=== PATIENT | female | born 1935 | race Caucasian/White ===

== ENCOUNTER 2021-01-16 17:59 | Inpatient (IN) | payer OTHER ==
[~2021-01-16] VITALS: Ht 157.5 cm; Wt 82.7 kg
--- NOTE | ~2021-01-16 | EMS ---
[address] [address] EMS Patient Care Report Name: SUSAN OZUNA Room #: REG KELSIE Reid#: [id number] Admission: 01/16/21 Attend Phys: Discharge: Date of : 36 Report #: [id number] THIS REPORT FOR: //name// Report Transmitted: 01/16/2021 17:56 EMS Care Summary [facility] MED-ACT Incident [id number] @ 01/16/2021 17:27 Incident Location [address] [place] [address] Patient SUSAN LAROSE Female, 85 Years 1935 Patient Address [address] [place] [address] Patient History Diabetes,Hypertension (HTN),TIA, Patient Allergies Latex allergy,Phenergan,Iodine,Toradol,Cipro,Compazine, Patient Medications Ambien, Hydrocodone, Gabapentin, Levemir, Levothyroxine, Ondansetron, Atorvastatin, Sertraline, Eliquis, Losartan, Melatonin, Omeprazole, Novolin, Cholecalciferol, Chief Complaint Left leg pain Disposition Transported No Lights/[place] Dispatch Reason Traumatic Injury Transported To [facility] Narrative M1142 was dispatched to a code 3 fall. M1142 responded with no delay. [facility] [address] [place] [address] EMS Patient Care Report Name: SUSAN OZUNA Room #: REG KELSIE Reid#: [id number] Admission: 01/16/21 Attend Phys: Discharge: Date of : 36 Report #: [id number] On arrival M1142 found an 83 yo female sitting in an office chair inside the front door. Pt was alert and oriented. Pt did not appear to be in any distress. Pt stated that she fell on 01/11 and initially was not injured. The next day pt woke up with her left leg hurting and the pain has increased since then. Pt wanted to be transported to the hospital for evaluation. Pt stood with assistance and sat on the cot. After pt was on the cot seatbelts were placed on pt. Pt was then moved to the back of the ambulance where she was placed on the monitor. Pt was monitored en route to the hospital. At the hospital pt was moved the the ER bed and report given to the RN. M1142 cleared the hospital and returned to service. Initial Vitals @17:47P: 81,R: 14,BP: 164/83,SpO2: 94, @17:41P: 81,R: 14,BP: 141/78,Pain: 9/10,GCS: 15,Temp: 98F,SpO2: 96,Revised Trauma: 12, Assessments @17:50MENTAL:Person Oriented,Time Oriented,Place Oriented,Event Oriented,SKIN:HEENT:Head/Face: No Abnormalities,Eyes: No Abnormalities,Neck/Airway: No Abnormalities,LUNG SOUNDS:ABDOMEN:PELVIS//GI:EXTREMITIES:Left Leg: Other,Capillary Refill: Left Lower: 3 Sec,Left Arm: No Abnormalities,Right Arm: No Abnormalities,Right Leg: No Abnormalities,PULSE:Pedal: 2+ Normal,NEURO: Impression Injury of Lower Leg Procedures @PTASurgical Mask on PatientResponse: Unchanged@17:40ALS AssessmentResponse: UnchangedSucceeded Timeline MILL TURNER,Surgical Mask on Patient,Response: Unchanged 17:26,Call Received 17:26,Psap Call 17:27,Dispatched 17:28,En Route 17:32,On Scene 17:34,At Patient 17:39,Depart Scene 17:40,ALS Assessment,Response: UnchangedSucceeded, 17:41,BP: 141/78 M,PULSE: 81,RR: 14 R,SPO2: 96 Ox,ETCO2: ,BG: ,PAIN: 9,GCS: 15, 17:47,BP: 164/83 M,PULSE: 81,RR: 14 R,SPO2: 94 Ox,ETCO2: ,BG: ,PAIN: ,GCS: , 17:54,At Destination 18:06,Call Closed [facility] [address] [place] [address] EMS Patient Care Report Name: SUSAN OZUNA Room #: REG [facility]..#: [id number] Admission: 01/16/21 Attend Phys: Discharge: Date of : 36 Report #: [id number] Disclaimer v1.1 Copyright 2020 [employer] This EMS Care Summary contains data elements from the applicable legal record (which may be displayed differently). It is designed to provide pertinent information for the following purposes: continuity of care, clinical quality, and state data reporting. The complete legal record is available to ED staff and administrators of the receiving hospital in [facility]'s Patient Tracker. All data is provided "as is."
[2021-01-16 18:00] VITALS: BP 142/67
[2021-01-16 21:46] LABS: ABSOLUTE NEUTROPHILS 4.2 thou/uL (1.4-8.2); BASOPHILS 0.4 % (0.0-2.0); EOSINOPHILS 1.1 % (0.0-3.0); HEMATOCRIT 36.9 % (37.0-47.0); HEMOGLOBIN 12.2 gm/dL (12.0-15.0); LYMPHOCYTES 16.4 % (24.0-44.0); MCHC 33.1 g/dL (28.0-37.0); MCV 99.8 fL (80.0-100.0); PLATELET COUNT 173 thou/uL (150-400); POLYS 72.1 % (36.0-66.0); RDW 14.8 % (10.5-14.5); WBC 5.8 thou/uL (4.0-11.0)
[2021-01-16 21:51] LABS: CREATININE 1.2 mg/dL (0.6-1.0); POTASSIUM 4.3 mmol/L (3.5-5.1)
[2021-01-16 21:58] LABS: ALBUMIN 2.6 g/dL (3.4-5.0); PROTIME 10.9 Seconds (10.5-12.1); TOTAL BILIRUBIN 0.6 mg/dL (0.2-1.0); TOTAL PROTEIN 6.3 g/dL (6.4-8.2)
[2021-01-17 00:04] VITALS: BP 159/60
[2021-01-17 00:39] VITALS: BP 194/91
[2021-01-17] MEDS ORDERED: ADULT LOW DOSE81 MG PO (03:35)
[2021-01-17] MEDS ORDERED: LIPITOR 10 MG10 M1 PO (03:36)
[2021-01-17] MEDS ORDERED: FOLIC ACID1 MG PO (03:38)
[2021-01-17] MEDS ORDERED: ELIQUIS2.5 MG PO (03:38)
[2021-01-17] MEDS ORDERED: MELATONIN5 M4 PO (03:39)
[2021-01-17] MEDS ORDERED: SYNTHROID25 MC1 PO (03:39)
[2021-01-17] MEDS ORDERED: NEURONTIN100 MG PO (03:39)
[2021-01-17] MEDS ORDERED: COZAAR 25 MG TA25 M1 PO (03:40)
[2021-01-17] MEDS ORDERED: MYRBETRIQ50 MG PO (03:40)
[2021-01-17] MEDS ORDERED: FERROUS SULFAT325 MG PO (03:41)
[2021-01-17] MEDS ORDERED: PRILOSEC OTC20 MG PO (03:41)
[2021-01-17] MEDS ORDERED: MYSOLINE50 MG PO (03:41)
[2021-01-17] MEDS ORDERED: ZOLOFT100 MG PO (03:41)
[2021-01-17] MEDS ORDERED: SENNA8.6 MG PO (03:42)
[2021-01-17] MEDS ORDERED: ACETAMINOPHEN325 M1 PO (03:43)
[2021-01-17] MEDS ORDERED: VITAMIN D32400 UNIT/ PO (03:46)
[2021-01-17 04:25] VITALS: BP 162/71
--- NOTE | 2021-01-17 05:01 | NUR ---
Pt admitted from ED approx 0055 with louie knee pain/Left hip pain. A/OX4,VSS. C/o pain to knees/left hip especially with movement. Medicated per EMAR with Fentanyl pt questioning if she's allergic to it informed it's not on her allergy list;some relief reported after meds. Voiding per bedpan d/t pain. Pt incurred a skin tear on left hand during lab draw,unable to take a picture d/t 4W/4S camera not working. First aid done and foam dsg applied. Fall precautions in place,calls approp for help. Resting quietly w/oa ny distress,afib on telemetry.
[2021-01-17 05:36] LABS: HEMOGLOBIN 12.5 gm/dL (12.0-15.0); WBC 6.3 thou/uL (4.0-11.0)
[2021-01-17 05:38] LABS: HEMATOCRIT 36.9 % (37.0-47.0); MCH 33.9 pg (26.0-34.0); MCHC 33.9 g/dL (28.0-37.0); RBC 3.68 mil/uL (4.20-5.00); RDW 14.7 % (10.5-14.5)
[2021-01-17 05:58] LABS: CALCIUM 9.2 mg/dL (8.5-10.1)
[2021-01-17 07:35] VITALS: BP 148/78
--- NOTE | 2021-01-17 09:25 | NUR ---
WOUND CONSULT; WOUND CARE WAS CONSULTED TO ASSESS THE LEFT HAND. ASSESSMENT REVEALED A SKIN TEAR WITH A VIABLE FLAP PARTIALLY ATTACHED. THE WOUNBED IS HEALTHY RED. THERE IS MILD SEROUS DRAINAGE. THERE ARE NO S/S OF INFECTION. I WAS EASILY REAPPROXIMATED. I APPLIED MARATHON NO STING BARRIER SKIN PROTECTANT. I APPLIED A SMALL PIECE OF XEROFORM GAUZE, COVERED WITH A BORDER FOAM. RECOMMENDATIONS; -LOW AIR LOSS BED PUMP -APPLY XEROFORM,ABD, BORDER FOAM CHANGE M/W/F PRN DISCUSSED WITH GONZALEZ
--- NOTE | 2021-01-17 11:38 | NUR ---
PT ADMITTED RELATED TO BETTINA KNEE/LEFT HIP PAIN,FALL. CM REVIEWED CHART AND SPOKE WITH CARE TEAM. CM MET WITH PT AT BEDSIDE THIS DAY. PT APPEARED TO BE A&O X4. CM ROLE INTRODUCED. PT INDICATED SHE RESIDES IN A HOUSE WITH HER SON BRIGID WITH 2 STEPS TO ENTER IN THE FRONT AND 3 IN THE GARAGE. PT INDICATED SHE HAS ALL NEEDS ON 1 LEVEL INSIDE. PT INDICATED SHE HAD USED A FWW TO ASSIST WITH MOBILITY. PT INDICATED NO HH, OP, OR SKILLED HX. 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 PT INDICATED THAT HER SON IS HER CAREGIVER. PT STATED SHE PLANS TO RETURN HOME ONCE MEDICALLY STABLE. SHE STATED SHE LIKLELY WOULDN'T BE RECEPTIVE TO SKILLED AND MIGHT CONSIDER HH IS IT'S RECOMMENDED. CM CALLED AND LEFT FOR PT'S SON BRIGID . CM FOLLOWING REGARDING DC PLANNING.
--- NOTE | 2021-01-17 12:12 | NUR ---
PT ALERT AND ORIENTED TIMES THREE WITH PERIODS OF CONFUSION. VSS, IVF INFUSING PER ORDER. PT C/O PAIN PRN PAIN MEDICATIONS GIVEN WITH SOME RELEIF. PT TOLERATES MED AND MEALS. WILL CONTINUE TO MONITOR.
[2021-01-17 15:30] VITALS: BP 157/78
[2021-01-17 19:59] VITALS: BP 159/93
--- NOTE | 2021-01-18 06:12 | NUR ---
Assumed pt care at 1900. A/OX4 with forgetfulness noted. VSS. Impacted at HS;Dulcolax supp ordered but pt had an extra hard BM before administration;no need for suppository then and verbalized much better. C/o knee pain more on left knee medicated with [place] with relief reported. AFIB on telemetry. Fall preacautions in place,calls approp for help. Resting quietly at this time, will continue to monitor pt.
[2021-01-18 07:27] VITALS: BP 174/88
[2021-01-18 16:07] VITALS: BP 155/97
--- NOTE | 2021-01-18 18:11 | NUR ---
Assumed pt care this am, son at the bed side. Pt has difficulty in hearing and has aids. Pain is managed with medications, partial relief is noted. Left knee pain is worse that the right. Was able to work with pt to get up the bed and take a few steps. Pt very hard of hearing even with her hearing aids. POC followed, endorsed to the night nurse.
[2021-01-18 19:50] VITALS: BP 166/86
--- NOTE | 2021-01-19 02:28 | NUR ---
PT CARE ASSUMED WITH PT IN BED WITH SON AT BEDSIDE AT 1900.PT IS A/O X4.PT IS UP WITH X2 ASSIST.IV ACCESS ON RT AC SL.PT C/O PAIN AND PAIN MANAGED WITH NORCO,TYLENOL AND FENTANYL WITH PARTIAL RELIEF.PT USES A BEDPAN .FALL PRECAUTIONS IN PLACE.WILL CONTINUE TO MONITOR
[2021-01-19 07:20] VITALS: BP 172/66
--- NOTE | 2021-01-19 12:10 | NUR ---
CM FOLLOWED UP WITH PT AND SON AT BEDSIDE THIS AM. THEY ASKED THAT REFERRAL BE SENT TO [facility], [facility], AND [facility]. CM FAXED REFERRAL. CM SPOKE WITH ENIO BOWERS AT [place] AND HE INDICATED THEY ARE REVIEWING REFERRAL AND WILL GET BACK TO IF THEY CAN ACCEPT AND SUBMIT FOR AUTH. CM FOLLOWING REGARDING DC PLANNING.
[2021-01-19 15:30] VITALS: BP 151/80
[2021-01-19 19:04] VITALS: BP 160/86
--- NOTE | 2021-01-19 20:14 | NUR ---
ASSUMED CARE OF PATIENT AT SHIFT CHANGE. ASSESSMENT CHARTED. MEDICATIONS ADMINISTERED PER EMAR; PATIENT TAKES MEDS WHOLE IN APPLESAUCE ONE AT A TIME. VSS. PATIENT IS A&OX3-4 AND ABLE TO MAKE NEEDS KNOWN. PATIENT HAS BEEN WORKING WITH PT AND OT AND DOING WELL. PATIENT IS PROGRESSING; PATIENT GOT UP TO BSC AND CHAIR AND DID WELL. PATIENT STILL VOICING L SIDED PAIN NOT RELIEVED ADEQUATELY BY PAIN ANALGESICS AND WILL ASK FOR THEM AHEAD OF SCHEDULED TIME. PATIENT IS TOLERATING PO INTAKE WELL AND IS OTHERWISE DOING WELL MEDICALLY. SON WAS AT BEDSIDE DURNING VISITING HOURS. ENDORSED TO ONCOMING NURSE
[2021-01-20 05:03] VITALS: BP 156/84
--- NOTE | 2021-01-20 05:35 | NUR ---
Pt. rested quietly at short intervals during the night when checked on during frequent rounds. She c/o chronic left lower extremity pain and pain meds given (see emar) with no to some relief of pain. Uses the bedpan at her re- quest and voiding without difficulty. Bed alarm is on.
[2021-01-20 07:20] VITALS: BP 181/95
[2021-01-20 10:30] VITALS: BP 172/96
--- NOTE | 2021-01-20 12:01 | NUR ---
Received awake on bed. Due medications given as prescribed, able to swallow meds w/o difficulty. On room air. Vital signs stable. On telemetry; no complains and signs of chest pain, crushing sensation and heaviness. Assited in ADLs. On heart healthy diet- tolerating well; no nausea, no vomiting and no abdominal pain noted. Continent of bowel and bladder, using bedpan as per request due to pain. With SL at R AC- intact and flushing well. With skin tear at L hand- dressing C/D/I. Complained of pain, due PRN pain meds given as prescribed- Dr Sampson informed re: constant pain level and no relief from current regimen, as well as clock watching and drug seeking behaviors. With elevated BP this AM 181/95, am meds given as prescribed and BP rechecked- 172/96- Dr Sampson informed; acknowledged, will order meds- a/w. With son at bedside, update given. To continue monitoring patient.
[2021-01-20 16:11] VITALS: BP 159/64
[2021-01-20 20:27] VITALS: BP 197/85
--- NOTE | 2021-01-21 04:45 | NUR ---
patient aox3 forgetful and confused at times. pain controlled this shift.fall precaution in place. patient in bed asleep at this time breathing regular and unlaboured.
[2021-01-21 07:15] VITALS: BP 163/99
[2021-01-21] MEDS ORDERED: HYDROCODON-ACE1 EAC7 PO (11:04)
--- NOTE | 2021-01-21 16:03 | NUR ---
PATIENT D/C'D TO FACILITY. PATIENT LEFT IN GOOD CONDITION PER STRETCHER WITH ALL OF HER BELONGINGS AND HER INSTRUCTIONS, AND SCRIPTS. REPORT WAS CALLED TO THE FACILITY.
== END 2021-01-21 16:01 | DRG 553 ==
LOC: ER 17:59 → 4W 22:19 → EROBS 22:19 → 4W 01-17 01:16
PROVIDERS: Emergency Medicine; Nurse Practitioner Family; ADMIT Hospitalist; ATTEND Hospitalist
PROC: 0S9D3ZZ Drainage of Left Knee Joint, Percutaneous Approach (ICD-10-PCS; principal; 2021-01-17)
DX: M17.12 Unilateral primary osteoarthritis, left knee (principal); E43 Unspecified severe protein-calorie malnutrition; N17.9 Acute kidney failure, unspecified; M25.462 Effusion, left knee; E78.5 Hyperlipidemia, unspecified; E03.9 Hypothyroidism, unspecified; K21.9 Gastro-esophageal reflux disease without esophagitis; F32.9 Major depressive disorder, single episode, unspecified; I10 Essential (primary) hypertension; M25.461 Effusion, right knee; I48.91 Unspecified atrial fibrillation; S70.02XA Contusion of left hip, initial encounter; E55.9 Vitamin D deficiency, unspecified; W18.30XA Fall on same level, unspecified, initial encounter; Z20.822 Contact with and (suspected) exposure to COVID-19; Z88.1 Allergy status to other antibiotic agents; Z91.040 Latex allergy status; Z88.2 Allergy status to sulfonamides; Z88.8 Allergy status to other drugs, medicaments and biological substances; Z91.048 Other nonmedicinal substance allergy status; Z79.82 Long term (current) use of aspirin; Z79.899 Other long term (current) drug therapy; Z79.01 Long term (current) use of anticoagulants; Y93.89 Activity, other specified; Y92.89 Other specified places as the place of occurrence of the external cause; Y99.8 Other external cause status
CPT/HCPCS: 10045

== ENCOUNTER 2021-02-05 23:53 | Inpatient (IN) | payer OTHER ==
[~2021-02-05] VITALS: Ht 157.5 cm; Wt 82.1 kg
--- NOTE | ~2021-02-05 | EMS ---
[address] [address] EMS Patient Care Report Name: SUSAN LAROSE Room #: 437-P ADM IN M.R.#: [id number] Admission: 02/06/21 Attend Phys: Nilson Sampson MD Discharge: Date of : 36 Report #: [id number] THIS REPORT FOR: //name// Report Transmitted: 02/06/2021 09:17 EMS Care Summary [facility] MED-ACT Incident [id number] @ 02/05/2021 23:15 Incident Location [address] [place] [address] Patient SUSAN LAROSE Female, 85 Years 1935 Patient Address [address] [place] [address] Patient History Diabetes,Hypertension (HTN),TIA, Patient Allergies Latex allergy,Phenergan,Iodine,Toradol,Cipro,Compazine, Patient Medications Hydrocodone, Levemir, Cholecalciferol, Gabapentin, Ambien, Sertraline, Melatonin, Ondansetron, Eliquis, Novolin, Atorvastatin, Levothyroxine, Omeprazole, Losartan, Chief Complaint "I don't move well enough to stay at home" Disposition Transported No Lights/[place] Dispatch Reason Falls Transported To [facility] Narrative M1144 responds C3 to reported fall at local residence. After unremarkable response phase 1144 enters scene to find one pt seated in wheelchair in [address] [address] EMS Patient Care Report Name: SUSAN LAROSE Room #: 437-P ADM IN ..#: [id number] Admission: 02/06/21 Attend Phys: Nilson Sampson MD Discharge: Date of : 36 Report #: [id number] entrance to home. Pt states she was released here to her son's home after being in rehab to regain strength for approximately one week. She states that she was released to his home yesterday afternoon. She states that she was ambulating through the home this evening when she lost her balance and fell. She states she was uninjured in the fall outside of a quarter sized skin tear to her R wrist. Physical exam reveals no further injuries. She states that arthritis in her knees is the primary cause for her lack of mobility. She states she was released from rehab too early and that she wants to be transported to the ED so she can be placed back in rehab. Pt confirms use of blood thinners, but denies loss of consciousness. Pt requires supportive care only while en route. M1144 clears and returns to service. Initial Vitals @23:37P: 80,BP: 116/82,SpO2: 96, @23:33P: 74,R: 16,BP: 119/63,Pain: 0/10,GCS: 15,Temp: 98.1F,SpO2: 93,Revised Trauma: 12, Assessments @23:29MENTAL:Person Oriented,Time Oriented,Place Oriented,Event Oriented,SKIN:HEENT:LUNG SOUNDS:ABDOMEN:PELVIS//GI:EXTREMITIES:Left Leg: STEWART,PULSE:NEURO: Impression Reduced Mobility Procedures @PTASurgical Mask on PatientResponse: Unchanged Timeline PEANUT CLEANER,Surgical Mask on Patient,Response: Unchanged 23:00,Call Received 23:00,Psap Call 23:15,Dispatched 23:17,En Route 23:23,On Scene 23:24,At Patient 23:33,Depart Scene 23:33,BP: 119/63 M,PULSE: 74,RR: 16 R,SPO2: 93 Ox,ETCO2: ,BG: ,PAIN: 0,GCS: 15, 23:37,BP: 116/82 M,PULSE: 80,RR: R,SPO2: 96 Ox,ETCO2: ,BG: ,PAIN: ,GCS: , 23:47,At Destination 00:01,Call Closed Disclaimer v1.1 Copyright 2020 [employer] This EMS Care Summary contains data elements from the applicable legal record (which may be displayed differently). It is [place] [address] EMS Patient Care Report Name: SUSAN LAROSE Room #: 437-P ADM IN .R.#: [id number] Admission: 02/06/21 Attend Phys: Nilson Sampson MD Discharge: Date of : 36 Report #: [id number] information for the following purposes: continuity of care, clinical quality, and state data reporting. The complete legal record is available to ED staff and administrators of the receiving hospital in [facility]'s Patient Tracker. All data is provided "as is."
[~2021-02-05 23:53] MED LIST: ACETAMINOPHEN325 M1 PO; ADULT LOW DOSE81 MG PO; COZAAR 25 MG TA25 M1 PO; ELIQUIS2.5 MG PO; FERROUS SULFAT325 MG PO; FOLIC ACID1 MG PO; HYDROCODON-ACE1 EAC7 PO; LIPITOR 10 MG10 M1 PO; MELATONIN5 M4 PO; MYRBETRIQ50 MG PO; MYSOLINE50 MG PO; NEURONTIN100 MG PO; PRILOSEC OTC20 MG PO; SENNA8.6 MG PO; SYNTHROID25 MC1 PO; VITAMIN D32400 UNIT/ PO; ZOLOFT100 MG PO
[2021-02-05 23:54] VITALS: BP 127/68
[2021-02-06] MEDS ORDERED: ACETAMINOPHEN650 M2 PO (00:39)
[2021-02-06 00:43] LABS: BASOPHILS 0.7 % (0.0-2.0); EOSINOPHILS 0.9 % (0.0-3.0); HEMATOCRIT 36.3 % (37.0-47.0); HEMOGLOBIN 12.1 gm/dL (12.0-15.0); LYMPHOCYTES 9.6 % (24.0-44.0); MCH 32.7 pg (26.0-34.0); MCHC 33.4 g/dL (28.0-37.0); MCV 98.1 fL (80.0-100.0); MONOCYTES 6.8 % (1.0-8.0); PLATELET COUNT 294 thou/uL (150-400); RDW 13.9 % (10.5-14.5); WBC 7.3 thou/uL (4.0-11.0)
[2021-02-06 00:46] LABS: CALCIUM 9.2 mg/dL (8.5-10.1); CREATININE 1.7 mg/dL (0.6-1.0); POTASSIUM 4.8 mmol/L (3.5-5.1)
[2021-02-06 00:54] LABS: ALBUMIN 2.2 g/dL (3.4-5.0); TOTAL BILIRUBIN 0.5 mg/dL (0.2-1.0); TOTAL PROTEIN 6.5 g/dL (6.4-8.2)
[2021-02-06 00:56] LABS: APTT 26.5 Seconds (24.5-32.8); INR 1.04; PROTIME 11.3 Seconds (10.5-12.1)
[2021-02-06 02:06] LABS: URINE BILIRUBIN NEGATIVE (Negative); URINE BLOOD NEGATIVE (Negative); URINE CLARITY CLEAR; URINE COLOR YELLOW; URINE GLUCOSE-RANDOM* NEGATIVE (Negative); URINE KETONES NEGATIVE (Negative); URINE PROTEIN (DIPSTICK) NEGATIVE (Negative); URINE UROBILINOGEN 0.2 E.U./dl (0.2-1.0)
[2021-02-06 02:10] LABS: URINE LEUKOCYTES-REFLEX 1+ (Negative); URINE NITRITE-REFLEX POSITIVE (Negative)
[2021-02-06 02:12] LABS: BACTERIA-REFLEX >30 Many /HPF (None Seen); HYALINE CASTS 0-3 Few /LPF (None Seen); MUCUS None Seen strn/LPF (None Seen); SQUAMOUS None Seen /LPF (0-3)
[2021-02-06 02:13] LABS: CRYSTALS None Seen /LPF (None Seen); URINE RBC 1-2 Rare /HPF (NONE SEEN); URINE WBC-REFLEX 6-15 Few /HPF (0-5); WBC CLUMPS Few (None Seen)
[2021-02-06] MEDS ORDERED: OXYCODONE HCL10 MG PO ×2 (02:30→02:31)
[2021-02-06] MEDS ORDERED: MYSOLINE50 MG PO (02:33)
[2021-02-06] MEDS ORDERED: MILK OF MA400 MG/5 M PO (02:34)
[2021-02-06] MEDS ORDERED: NOVOLOG FL100 UNIT/M SUBQ (02:35)
[2021-02-06] MEDS ORDERED: LEVEMIR FL100 UNIT/2 SUBQ (02:35)
[2021-02-06 03:39] VITALS: BP 146/62
--- NOTE | 2021-02-06 04:00 | NUR ---
Pt. admitted to the unit from the emergency room accompanied by staff. Admission assessment and history is completed. She c/o chronic left hip pain. Pain meds given (see emar). Bed alarm is on.
[2021-02-06 04:16] VITALS: BP 161/71
[2021-02-06 04:17] VITALS: BP 161/71
--- NOTE | 2021-02-06 08:26 | EKG ---
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
[2021-02-06 08:57] VITALS: BP 126/56
--- NOTE | 2021-02-06 10:34 | NUR ---
RD consult received however no reason specified. Admitted with UTI, falls. Hx DM, BG controlled. Tolerates meals and no wt loss since hospitalization earlier this month. Low nutrition risk at this time.
--- NOTE | 2021-02-06 13:26 | NUR ---
ASSESSMENT: CM REVIEWED CHART AND SPOKE WITH PATIENT WELL HER SON BRIGID. PT WAS ADMITTED DUE TO HAVING INCREASED WEAKNESS AND INABILITY TO CARE FOR SELF AT HOME. PT WAS RECENTLY DISCHARGED FROM [facility] (FRIDAY) AND SENT HOME WITH [facility]. PT LIVES IN A HOUSE WITH HER SON. PT HAS A RAMP TO ENTER THE HOME AND ALL HER NEEDS ARE ON THE MAIN LEVEL. PT HAS A WHEELCHAIR HER SON RECENTLY BOUGHT AND ALSO HAS A WALKER. CM NOTIFIED [facility] OF PATIENTS ADMISSION AND SENT UPDATED CLINICAL. PATIENT WAS VARIANCED FROM PT/OT BUT CM DISCUSSED POSSIBLE NEED OF POST ACUTE CARE STAY UPON DISCHARGE AND THEY REPORT IF SO SHE WOULD LIKELY GO BACK TO [facility].
[2021-02-06 19:07] VITALS: BP 147/74
--- NOTE | 2021-02-06 19:51 | NUR ---
RN ASSUNED PT'S CARE AT 0700-1900PM, PT IS A&OX2 ( PERSON,AND PLACE ), PT CAN FOLLOW COMMANDS, PT IS CONTINUING IV ABX AND IV FLIUDS, PT'S PAIN CAN CONTROL BY MEDICATIONS, PT NEEDS HELP ADL.
--- NOTE | 2021-02-07 03:09 | NUR ---
Pt. was very restless at the first of the shift. C/o left leg pain and ivp pain med given with no relief. Ice pack offered, but she refused. Pt. also wanted judi wrap taken off her left leg. Po pain med given (see emar) with better pain relief noted. She is currently resting quietly in bed. Bed alarm is on.
[2021-02-07 04:12] VITALS: BP 150/89
[2021-02-07 08:30] VITALS: BP 177/87
--- NOTE | 2021-02-07 10:15 | 2DMMODE ---
[facility] [place] [address] 2 D/M-MODE ECHOCARDIOGRAM Name: SUSAN LAROSE Room #: 437-P ADM IN M.R.#: [id number] Admission: 02/06/21 Attend Phys: Nilson Sampson MD Discharge: Date of : 36 Report #: [id number] THIS REPORT FOR: cc: Allyssa Mccarthy MD, Jane T. MD Lundgren,Deonte La MD [facility] ~ APPROVED REPORT Study performed: 02/07/2021 09:11:26 EXAM: Comprehensive 2D, Doppler, and color-flow Echocardiogram Patient Location: Bedside Room #: 437 Status: routine BSA: 1.83 HR: 72 bpm BP: 177/87 mmHg Rhythm: Atrial Fibrillation Other Information Study Quality: Adequate Indications Atrial Fibrillation 2D Dimensions RVDd: 34.92 mm IVSd: 9.76 (7-11mm) LVOT Diam: 20.00 (18-24mm) LVDd: 52.89 mm PWd: 9.72 (7-11mm) Ascending Ao: 33.42 (22-36mm) LVDs: 32.90 (25-40mm) Left Atrium: 36.35 (27-40mm) Aortic Root: 34.87 mm Volumes Left Atrial Volume (Systole) Single Plane 4CH: 72.71 mL Single Plane 2CH: 77.04 mL LA ESV Index: 44.00 mL/m2 Aortic Valve AoV Peak Zelalem.: 1.39 m/s AO Peak Gr.: 7.72 mmHg LVOT Max P.11 mmHg LVOT Max V: 1.01 m/s HIRAM Vmax: 2.29 cm2 [facility] [address] [place] [address] 2 D/M-MODE ECHOCARDIOGRAM Name: SUSAN LAROSE Brittany Room #: 437-P [facility] IN [facility]#: [id number] Admission: 02/06/21 Attend Phys: Nilson Sampson, Discharge: Date of : 36 Report #: [id number] Mitral Valve MV Decel. Time: 79.58 ms MV E Max Zelalem.: 1.22 m/s Pulmonary Valve PV Peak Zelalem.: 0.93 m/s PV Peak Gr.: 3.45 mmHg Tricuspid Valve TR Peak Zelalem.: 2.81 m/s RAP Estimate: 10.00 mmHg TR Peak Gr.: 32.00 mmHg PA Pressure: 42.00 mmHg Left Ventricle The left ventricle is normal size. There is normal LV segmental wall motion. There is normal left ventricular wall thickness. Left ventricular systolic function is normal. LVEF is 60-65%. This study is not technically sufficient to allow evaluation of the LV diastolic function due to atrial fibrillation. Right Ventricle The right ventricle is normal size. The right ventricular systolic function is normal. Atria Left atrium is moderately dilated. The right atrium size is normal. Aortic Valve The aortic valve is normal in structure. Mild aortic regurgitation. There is no aortic valvular stenosis. Mitral Valve The mitral valve is normal in structure. Mild mitral regurgitation. No evidence of mitral valve stenosis. Tricuspid Valve The tricuspid valve is normal in structure. Mild to moderate tricuspid regurgitation. Estimated pulmonary artery pressure of 45mmHg. Pulmonic Valve The pulmonary valve is normal in structure. There is no pulmonic valvular regurgitation. Great Vessels [facility] [address] [place] [address] 2 D/M-MODE ECHOCARDIOGRAM Name: THUANSUSAN Soto Room #: 437-P [facility] IN .R.#: [id number] Admission: 02/06/21 Attend Phys: Nilson Sampson, Discharge: Date of : 36 Report #: [id number] The aortic root is normal in size. The ascending aorta is normal in size. IVC is dilated and collapses <50% with inspiration. Pericardium There is no pericardial effusion. <Conclusion> Left ventricular systolic function is normal. LVEF is 60-65%. There is normal LV segmental wall motion. The aortic valve is normal in structure. Mild aortic regurgitation, no stenosis The mitral valve is normal in structure. Mild mitral regurgitation. Mild to moderate tricuspid regurgitation. Estimated pulmonary artery pressure of 45mmHg. There is no pericardial effusion. <ELECTRONICALLY SIGNED> By: Deonte Friedman MD, [facility] 02/07/21 [phone] 14 Deonte Friedman MD, [facility] /INF
--- NOTE | 2021-02-07 11:33 | NUR ---
ASSUMED CARE OF PT AT 0700 THIS MORNING. PT IS A/OX4 AND OCCASIONALY CONFUSED. PT HAS PAIN IN LT LOWER LEG AND HAS HYDRO/APAP O BOARD FOR THE PAIN. ASSESSMENTS CHARTED AND OTHERWISE UNREMARKABLE. IV IN RT FA WITH NS AT 80ML/HR. PT AMBULATES X1 ASST WITH GB AND LINNEAKR. MEDS AND TX GIVEN NEEDED AND SCHEDULED. CALL LIGHT AND OTHER NEEDS ARE WITHIN REACH. CONTINUE TO MONITOR AND NOTE ANY CHANGES.
[2021-02-07 11:53] LABS: HEMOGLOBIN 11.4 gm/dL (12.0-15.0); MCH 32.3 pg (26.0-34.0); MCHC 32.5 g/dL (28.0-37.0); MCV 99.5 fL (80.0-100.0); RBC 3.52 mil/uL (4.20-5.00); RDW 13.7 % (10.5-14.5); WBC 5.5 thou/uL (4.0-11.0)
[2021-02-07 12:02] LABS: CALCIUM 8.6 mg/dL (8.5-10.1); CREATININE 1.3 mg/dL (0.6-1.0); POTASSIUM 4.6 mmol/L (3.5-5.1)
--- NOTE | 2021-02-07 12:49 | NUR ---
ON-GOING ASSESSMENT: CM REVIEWED CHART AND SPOKE WITH ATTENDING. PT IS PROGRESSING TOWARDS DISCHARGE GOALS. PHYSICAL THERAPY CONTINUES TO RECOMMEND SNF. CM FOLLOWED UP WITH [facility] IN ADMISSION [facility] WHO REPORTS THEY WILL SUBMIT FOR INSURANCE AUTH ON PATIENT BUT UNSURE [employer] WILL APPROVE PT JUST RECENTLY LEFT THEIR FACILITY WITH SAME DIAGNOSIS. CECILIA STATED THAT PT/SON REQUEST THIS AND PHYSICIAN AND THERAPY ARE RECOMMENDING SNF AND TO PLEASE SUBMIT FOR AUTH. CM ALSO IF PT FALLS UNDER THE [employer] WAIVER AND HE REPORTS DUE TO HER RECENT ADMISSION TO THEM FOR SAME ISSUE THEY NEED TO SEEK AUTH AND SEE IF IT WILL BE APPROVED. CM FAXED UDP[facility] CLINICAL AND AWAITING TO HEAR BACK. CM ALSO CONTACTED PTS SON BRIGID TO UPDATE.
[2021-02-07 16:27] VITALS: BP 151/90
[2021-02-07 20:31] VITALS: BP 174/80
[2021-02-08 03:57] VITALS: BP 191/98
--- NOTE | 2021-02-08 04:26 | NUR ---
Pt. has rested quietly very little this shift. She has been restless and im- pulsive about her pain medications. Pain meds given (see emar) with some to no relief. She can be manipulative and disagree with the times she has had her last pain meds. Pt. writes down the times of pain meds when they were given. She can be forgetful. Bed alarm is on.
[2021-02-08] MEDS ORDERED: KEFLEX250 MG PO (12:19)
--- NOTE | 2021-02-08 13:56 | NUR ---
ASSUMED CARE OF PT AT 0700 THIS MORNING. PT HAD NO CHANGES SINCE LAST REPORT LAST NIGHT. PT IS STILL IN CHRONIC PAIN AND HAS NOT GONE BELOW AN 8 ON 1/10 SCALE. GIVING PT 25MCG FETANYL Q3H AND HYDRO/APAP Q6H. WILL CONTINUE TO MONITOR AND NOTE ANY CHANGES. NEW IV PLACED WITH 22GA IN RT AC. DR. ARIAS ORDERED NO MORE FLUIDS PER IV. ASSESSMENTS CHARTED AND OTHERWISE UNREMARKABLE. CALL LIGHT AND OTHER NEEDS ARE WITHIN REACH. FALL PRECAUTIONS ARE IN PLACE. MEDS AND TX GIVEN NEEDED AND SCHEDULED.
--- NOTE | 2021-02-08 16:17 | NUR ---
ON-GOING ASSESSMENT: CECILIA REVIEWED CHART AND SPOKE WITH ATTENDING. PT IS STABLE FOR DISCHARGE PENDING INSURANCE AUTH FOR FACILITY. CM FAXED UPDATED CLINICAL AND LEFT VM WITH [facility] IN ADMISSIONS. CECILIA RECEIVED CALL BACK FROM [facility] STATING THEY ARE STILL WAITING ON INSURANCE AUTH. CECILIA AGAIN ASKED HIM IF HE CAN RECHECK THERE IS CURRENTLY A WAIVER IN PLACE FOR [employer] PATIENTS AND SEE IF THEY CAN ACCEPT PATIENT UNDER THIS WAIVER. HE REPORTS HE WILL SEND THIS TO BUSINESS OFFICE/SUPERVISOR COATING AND SEE AND CM ALSO PROVIDED HIM WITH CM DIRECTOR CONTACT INFORMATION HERE AT [facility] WITH ANY QUESTIONS AND HE STATES THEIR FACILITY WOULD REACH OUT. CM NOTIFIED CM DIRECTOR. CM ALSO UPDATED PATIENTS SON BRIGID.
[2021-02-08 20:15] VITALS: BP 185/68
[2021-02-09 00:45] VITALS: BP 165/61
--- NOTE | 2021-02-09 03:02 | NUR ---
PT IS A/O X4 AND IS UNABLE TO AMBULATE DUE TO WEAKNESS AND PAIN IN BILAT LE FROM PREVIOUS FALL STATED BY THE PT. ROOM AIR. BP ELEVATED. PRN BP MEDICATION GIVEN DIRECTED. PT C/O PAIN AND REQUESTS PAIN MEDICATION AROUND THE CLOCK AND STATES PARTIAL TO NO RELIEF AT TIMES. HS BS WNL. FEMALE EXTERNAL CATHETER IN PLACE AND DRAINING YELLOW URINE. NO BM NOTED THIS NOC. PT APPEARS ANXIOUS AND RESTLESS WHILE AWAKE. FALL PRECAUTIONS IN PLACE, CALL LIGHT IS WITHIN REACH. WILL CONTINUE TO MONITOR.
[2021-02-09 04:45] VITALS: BP 177/71
[2021-02-09 07:30] VITALS: BP 155/57
--- NOTE | 2021-02-09 12:18 | NUR ---
ON-GOING ASSESSMENT: CM REVIEWED CHART AND SPOKE WITH ATTENDING. PT IS STABLE FOR DISCHARGE TO SNF. CM RECEIVED A CALL FROM EVELIO IN ADMISSIONS WHO IS COVERING FOR [facility] AT [facility] STATING THEY RECEIVED INSURANCE AUTH ON PATIENT AND CAN ACCEPT HER TODAY. CM ORDERED A CHART COPY. CM FAXED DISCHARGE PAPERWORK TO THE FACILITY AND CONFIRMED THEY RECEIVED IT. CECILIA NOTIFIED PT, HER SON BRIGID, AND BEDSIDE RN. TRANSPORTATION HAS BEEN ARRANGED FOR 2:30, ALL PARTIES AWARE. PT REPORTS NO FURTHER NEEDS FROM CECILIA. BEDSIDE RN HAS THE NUMBER FOR REPORT. CASE CLOSED.
--- NOTE | 2021-02-09 12:49 | NUR ---
PT ASSESSED AT START OF SHIFT. STILL HAVING LT LEG/KNEE PAIN BUT STATES IT'S SOME BETTER TODAY. IN BETTER SPIRITS. TRYING TO EAT SOME LUNCH SHE HASN'T BEEN WANTING TO EAT. TRANSPORTATION PLANNED FOR 1430 TO GO TO [facility] [place]. SON AT BEDSIDE.
[2021-02-09 16:10] VITALS: BP 146/54
--- NOTE | 2021-02-09 16:44 | NUR ---
ON-GOING ASSESSMENT: PT IS NO LONGER GOING TO [facility] THEIR ADMISSIONS STATING SON NEEDS TO FILL OUT FINANCIAL APPLICATION PRIOR TO THEM ACCEPTING PT. CECILIA NOTIFIED DIRECTOR WHO IS FOLLOW UP WITH THAT FACILITY AND ADMINISTRATION THERE. SON AND PT ARE OPEN TO REFERRAL TO ALTERNATE SNF AND PREFER [facility]. CECILIA FAXED REFERRAL AND SPOKE WITH PALOMA IN ADMISSIONS WHO REPORTS SHE WILL REVIEW IT AND [facility] IN ADMISSIONS IS WORKING ON THE WEEKEND. BEDSIDE RN CAN CONTACT [facility] ON FRIDAY AT [phone] TO SEE IF THEY CAN ACCEPT FOR ADMISSION AND FACILITATE DISCHARGE. FAX FOR DISCHARGE ORDERS IS [phone]. CHART COPY WILL NEED TO BE SENT WITH PATIENT. UPDATE PATIENTS MADELYN RAINEY IF [facility] CAN ACCEPT.
[2021-02-09 19:59] VITALS: BP 169/57
--- NOTE | 2021-02-09 20:58 | NUR ---
Pt. discharged to [facility] via w/c van. Hs meds,pain pill and insulin were given. VSS. Report given to nurse at the facility.
== END 2021-02-09 21:01 | DRG 682 ==
LOC: ER 23:53 → EROBS 02-06 02:25 → 4S 02-06 02:25
PROVIDERS: Emergency Medicine; Nurse Practitioner; ADMIT Internal Medicine; ATTEND Internal Medicine
DX: N17.0 Acute kidney failure with tubular necrosis (principal); E43 Unspecified severe protein-calorie malnutrition; N39.0 Urinary tract infection, site not specified; I48.20 Chronic atrial fibrillation, unspecified; B96.20 Unspecified Escherichia coli [E. coli] as the cause of diseases classified elsewhere; M17.0 Bilateral primary osteoarthritis of knee; M25.462 Effusion, left knee; M16.0 Bilateral primary osteoarthritis of hip; I10 Essential (primary) hypertension; E78.5 Hyperlipidemia, unspecified; E03.9 Hypothyroidism, unspecified; R53.81 Other malaise; M25.562 Pain in left knee; E55.9 Vitamin D deficiency, unspecified; K59.00 Constipation, unspecified; N32.81 Overactive bladder; G47.00 Insomnia, unspecified; K21.9 Gastro-esophageal reflux disease without esophagitis; F32.9 Major depressive disorder, single episode, unspecified; E11.9 Type 2 diabetes mellitus without complications; Z90.710 Acquired absence of both cervix and uterus; Z90.49 Acquired absence of other specified parts of digestive tract; Z88.2 Allergy status to sulfonamides; Z88.8 Allergy status to other drugs, medicaments and biological substances; Z88.1 Allergy status to other antibiotic agents; Z91.041 Radiographic dye allergy status; Z91.040 Latex allergy status; Z79.01 Long term (current) use of anticoagulants
CPT/HCPCS: 10102